=== PATIENT | female | born 1985 | race American Indian/Alaskan Native ===

== ENCOUNTER 2018-05-02 19:37 | Emergency (ER) | payer MEDICAID ==
[2018-05-02 20:25] VITALS: BP 157/82
[2018-05-02 21:14] LABS: HCG Qualitative,Urine Negative (Negative)
[2018-05-02 21:17] LABS: Bilirubin,Urine NEG (Negative); Blood,Urine NEG (Negative); Color,Urine Yellow (Yellow); Mucus,Urine 3+ /HPF
[2018-05-02] MEDS ORDERED: NORCO 5/325 PO ONE (23:25)
[2018-05-02] MEDS ORDERED: NORCO 5/325 ONE (23:27)
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
== END 2018-05-03 01:35 | disposition home or self-care (01) ==
LOC: ED 19:37
DX: S16.1XXA Strain of muscle, fascia and tendon at neck level, initial encounter (principal); R07.89 Other chest pain; Z88.0 Allergy status to penicillin; V49.09XA Driver injured in collision with other motor vehicles in nontraffic accident, initial encounter; Y93.89 Activity, other specified; Y99.8 Other external cause status; Y92.488 Other paved roadways as the place of occurrence of the external cause
CPT/HCPCS: 71045; 72040; 81001; 81025

== ENCOUNTER 2020-06-13 07:54 | Emergency (ER) | payer MEDICAID ==
[2020-06-13 08:02] VITALS: BP 116/72
[2020-06-13] MEDS ORDERED: CYCLOBENZAPRINE 10 MG TAB PO ONE (08:21)
[2020-06-13 08:37] LABS: Bacteria,Urine 1+ /HPF (Negative); Bilirubin,Urine NEG (Negative); Blood,Urine SM (Negative); Color,Urine Yellow (Yellow); Mucus,Urine 3+ /HPF
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
== END 2020-06-13 08:48 | disposition home or self-care (01) ==
LOC: ED 07:54
DX: S46.911A Strain of unspecified muscle, fascia and tendon at shoulder and upper arm level, right arm, initial encounter (principal); Z79.899 Other long term (current) drug therapy; Z88.0 Allergy status to penicillin; V49.49XA Driver injured in collision with other motor vehicles in traffic accident, initial encounter; Y93.89 Activity, other specified; Y92.410 Unspecified street and highway as the place of occurrence of the external cause; Y99.8 Other external cause status
CPT/HCPCS: 81001